=== PATIENT | female | born 1985 | race African-American/Black ===

== ENCOUNTER 2020-11-25 13:52 | Emergency (ER) | payer OTHER ==
[2020-11-25 14:00] VITALS: BP 104/69; PULSE 82; TEMP 98; BMI 32.3
[2020-11-25] MEDS ORDERED: METHOCARBAMOL 500 MG TABLET PO ONE (14:26)
[2020-11-25] MEDS ORDERED: KETOROLAC TROMETHAMINE 30 MG/1 ML VIAL IM ONE (14:26)
[2020-11-25] MEDS ORDERED: LIDOCAINE 5% TOPICAL PATCH TP ONE (14:26)
[2020-11-25] MEDS ORDERED: LIDOCAINE 5% TOPICAL PATCH ONE (14:29)
[2020-11-25] MEDS ORDERED: METHOCARBAMOL 500 MG TABLET ONE (14:29)
[2020-11-25] MEDS ORDERED: KETOROLAC TROMETHAMINE 30 MG/1 ML VIAL ONE (14:29)
== END 2020-11-25 15:24 | disposition home or self-care (01) ==
LOC: JERFT 13:52
PROC: 3E0233Z Introduction of Anti-inflammatory into Muscle, Percutaneous Approach (ICD-10-PCS; principal; 2020-11-25)
DX: M43.6 Torticollis (principal); M62.838 Other muscle spasm
CPT/HCPCS: 72050-TC-FY; 96372; 99284-25

== ENCOUNTER 2021-04-29 12:47 | Emergency (ER) | payer OTHER ==
[2021-04-29 13:00] VITALS: BP 131/82; PULSE 99; TEMP 97.9; BMI 30.3
[2021-04-29] MEDS ORDERED: KETOROLAC TROMETHAMINE 60 MG/2 ML VIAL IM ONE (13:24)
== END 2021-04-29 13:45 | disposition home or self-care (01) ==
LOC: JERFT 12:47
PROC: 3E023GC Introduction of Other Therapeutic Substance into Muscle, Percutaneous Approach (ICD-10-PCS; principal; 2021-04-29)
DX: M54.2 Cervicalgia (principal)
CPT/HCPCS: 96372; 99284-25

== ENCOUNTER 2021-12-26 20:01 | Emergency (ER) | payer OTHER ==
[2021-12-26 20:07] VITALS: BP 123/82; PULSE 100; RESP 20; TEMP 98.1; BMI 28.2
[2021-12-26] MEDS ORDERED: DEXAMETHASONE SOD PHOSPHATE 10 MG/1 ML VIAL PO ONE (21:37)
[2021-12-26] MEDS ORDERED: ERYTHROMYCIN 0.5% OPHTHALMIC OINTMENT 3.5 GM TUBE OU ONE (21:39)
[2021-12-26] MEDS ORDERED: ERYTHROMYCIN 0.5% OPHTHALMIC OINTMENT 3.5 GM TUBE ONE (21:43)
[2021-12-26] MEDS ORDERED: DEXAMETHASONE SOD PHOSPHATE 10 MG/1 ML VIAL ONE (21:43)
== END 2021-12-26 21:48 | disposition home or self-care (01) ==
LOC: JERFT 20:01
DX: J02.9 Acute pharyngitis, unspecified (principal); H10.9 Unspecified conjunctivitis
CPT/HCPCS: 99283-25; J1100

== ENCOUNTER 2021-12-28 23:29 | Emergency (ER) | payer OTHER ==
[2021-12-28 23:32] VITALS: BP 123/81; PULSE 100; RESP 18; TEMP 99.2; BMI 27.4
[2021-12-29] MEDS ORDERED: DEXAMETHASONE SOD PHOSPHATE 10 MG/1 ML VIAL ONE (00:38)
[2021-12-29] MEDS ORDERED: DEXAMETHASONE SOD PHOSPHATE 4 MG/1 ML VIAL IVPUSH ONE (00:56)
[2021-12-29] MEDS ORDERED: SODIUM CHLORIDE 0.9% 500 ML INFUS.BAG IV ONE ×2 (00:57→04:32)
[2021-12-29] MEDS ORDERED: ACETAMINOPHEN 1000 MG/100 ML BAG IVPB ONE (00:58)
[2021-12-29] MEDS ORDERED: ACETAMINOPHEN INJECTION 100 ML IVPB ONE (01:19)
[2021-12-29 01:52] LABS: BASO % 0.4 % (0-2.0); EOS % 0.3 % (0-4.5); HEMATOCRIT 41.7 % (32.4-45.2); HEMOGLOBIN 14.2 GM/dL (10.7-15.3); LYMPH % 22.5 % (8-40); MCH 29.6 pg (25.7-33.7); MCHC 34.1 g/dl (32.0-36.0); MEAN PLT VOLUME 9.2 fl (7.5-11.1); MONO % 8.4 % (3.8-10.2); NEUT % 68.4 % (42.8-82.8); PLATELET COUNT 234 10^3/uL (134-434); RBC 4.79 M/mm3 (3.60-5.2); RDW 12.6 % (11.6-15.6); WHITE BLOOD COUNT 11.8 K/mm3 (4.0-10.0)
[2021-12-29 02:00] LABS: INR 1.03 (0.83-1.09); PROTHROMBIN TIME (PATIENT) 11.9 SEC (9.7-13.0)
[2021-12-29 02:02] LABS: ACTIVATED PTT 27.6 SECONDS (25.2-36.5)
[2021-12-29 02:07] LABS: CALCIUM 9.6 mg/dL (8.5-10.1)
[2021-12-29 02:08] LABS: ALBUMIN 4.2 g/dl (3.4-5.0); BLOOD UREA NITROGEN 13.7 mg/dL (7-18)
[2021-12-29 02:11] LABS: CREATININE 0.8 mg/dL (0.55-1.3)
[2021-12-29 02:13] LABS: BILIRUBIN,TOTAL 0.4 mg/dL (0.2-1); TOT PROT 7.9 g/dl (6.4-8.2)
[2021-12-29] MEDS ORDERED: AMPICILLIN NA/SULBACTAM NA 3 GM in SODIUM CHLORIDE 100 ML IVPB ONE (04:12)
[2021-12-29] MEDS ORDERED: KETOROLAC TROMETHAMINE 15 MG/ML VIAL IVPUSH ONE (04:32)
[2021-12-29] MEDS ORDERED: KETOROLAC TROMETHAMINE 15 MG/ML VIAL ONE (04:50)
== END 2021-12-29 06:04 | disposition short-term general hospital (02) ==
LOC: JER 23:29
PROC: 3E033GC Introduction of Other Therapeutic Substance into Peripheral Vein, Percutaneous Approach (ICD-10-PCS; principal; 2021-12-28)
DX: R07.0 Pain in throat (principal)
CPT/HCPCS: 0241U-QW; 36415; 70491-TC; 80053; 84703; 85025; 85610; 85730; 96365; 96375; 99285-25; Q9967